=== PATIENT | female | born 1990 | race Caucasian/White ===

== ENCOUNTER 2021-02-07 21:58 | Emergency (ER) | payer OTHER, SELFPAY ==
--- NOTE | ~2021-02-07 | CT_ITS ---
EXAMINATION: CT abdomen pelvis w con DATE: 02/07/2021 23:23 INDICATION: Lower abdominal pain TECHNIQUE: Computed tomography (CT) of the abdomen and pelvis was performed with 100 mL Omnipaque-350 intravenous contrast. Automated exposure control and iterative reconstruction technique were employe d. The dose-length product was 864.09 mGy-cm. COMPARISON: None FINDINGS: Lung bases are clear. Heart size is normal. No pericardial or pleural effusion. Liver, gallbladder, s pleen, pancreas, right kidney and bilateral adrenal glands are normal. 1.4 cm cyst at the upper pole of the left kidney. Bowels including the appendix are normal. Bladder is normal. IUD in expected posi tion within the anteverted uterus. Bilateral ovarian cysts, the larger measuring 2.9 cm at the right ovary. There is small amount of high attenuation hemoperitoneum in the cul-de-sac with subtly higher attenuation likely sentinel clot sign along the anterior margin of the right ovary suggesting this ma y be related to ovarian cyst rupture. No abscess or free intraperitoneal gas. No pathologically enlar ged abdominal or pelvic lymphadenopathy. Bones are unremarkable. IMPRESSION: 1. Bilateral ovarian cysts, the larger on the right measuring 2.9 cm with small amount of hemoperiton eum in the cul-de-sac and right adnexal sentinel clot sign suggesting this represents sequela of righ t ovarian cyst rupture. 2. IUD in expected position within the anteverted uterus. Reviewed, dictated and finalized at location A. IMPRESSION: 1. Bilateral ovarian cysts, the larger on the right measuring 2.9 cm with small amount of hemoperitoneum in the cul-de-sac and right adnexal sentinel clot sig n suggesting this represents sequela of right ovarian cyst rupture. 2. IUD in expected position within the anteverted uterus.
[2021-02-07 22:00] VITALS: BP 137/94; PULSE 115; RESP 15; TEMP 36.5; O2SAT 100
--- NOTE | 2021-02-07 22:07 | PC.NURSE ---
Pt to restroom to provide urine specimen.
[2021-02-07 22:18] VITALS: BP 107/67; PULSE 107; PULSE 111; RESP 16; RESP 20; TEMP 37.2; O2SAT 100; O2SAT 99
--- NOTE | 2021-02-07 22:26 | PC.NURSE ---
Pt presents to ED with complaints of abdominal pain that has been persistent since Saturday. Pt states she usually has difficulty with having bowel movements and assumed that she was constipated and took a stool softener yesterday; states she normally takes stool softeners to induce bowel movements. Pt states she had diarrhea today. Denies nausea, fever, chills, chest pain and sob. Diffuse pain to abdomen that increases with deep inhalation and movement with pain rated 6/10 that is constant and intermittently sharp. Breathing noted to be even and unlabored and vitals are stable. Pt alert and oriented x4 and in no obvious distress at this time. 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 Call button and personal items within reach. Advised to press call button for assistance.
--- NOTE | 2021-02-07 22:26 | ED.ABDPAIN ---
HPI - Abdominal Pain General Chief Complaint: Abdominal Pain Stated Complaint: stomach pain Time Seen by Provider: 02/07/21 22:07 Source: patient Mode of arrival: ambulatory Limitations: no limitations History of Present Illness HPI narrative: Patient is a 30-year-old female complaining of lower abdominal pain, abdominal, 6 out of 10, nonradiating started approximately 3 days ago. Patient denies any chest pain, shortness of breath, nausea, vomiting, diarrhea, fever, chills or urinary symptoms. Denies any vaginal bleeding or discharge. Related Data Home Medications Medication Instructions Recorded Confirmed No Home Medications 01/04/21 01/04/21 Allergies Allergy/AdvReac Type Severity Reaction Status Date / Time Sulfa (Sulfonamide Allergy Unknown Hives Verified 01/04/21 10:40 Antibiotics) doxycycline AdvReac Intermediate Nausea Verified 01/04/21 10:40 Review of Systems Review of Systems: All systems reviewed & are unremarkable except as noted in HPI and below Constitutional: Constitutional: Denies body ache(s), Denies chills, Denies excessive sweating, Denies fatigue, Denies fever(s), Denies headache(s), Denies lethargy, Denies malaise, Denies weakness and Denies weight loss Eyes: Eyes: Denies blurry vision, Denies change in vision and Denies loss of vision ENT: Denies dizziness, Denies ear discharge, Denies headache(s), Denies lip swelling, Denies epistaxis, Denies nasal congestion, Denies neck pain, Denies throat swelling and Denies tongue swelling Cardiovascular: Cardiovascular: Denies chest pain, Denies chest pain at rest, Denies chest pain with activity, Denies diaphoresis, Denies rapid heart rate, Denies edema, Denies irregular heart rhythm, Denies lightheadedness, Denies palpitations, Denies dyspnea and Denies dyspnea on exertion Respiratory: Respiratory: Denies chest congestion, Denies cough, Denies hemoptysis, Denies dyspnea and Denies dyspnea on exertion Gastrointestinal: Gastrointestinal: Denies melena, Denies hematochezia, Denies diarrhea, Denies nausea, Denies vomiting and Denies hematemesis Musculoskeletal: Musculoskeletal: Denies abnormal gait, Denies deformity, Denies joint swelling, Denies limited range of motion, Denies neck pain and Denies numbness Neurologic: Denies Abnormal speech present, Denies abnormal gait, Denies confusion, Denies dizziness, Denies headache(s), Denies focal weakness, Denies loss of vision, Denies numbness, Denies Other visual disturbances, Denies Sensory deficit (Neuro) and Denies weakness Psychiatric: Psychiatric: Denies confusion, Denies depression, Denies auditory hallucinations, Denies homicidal ideation and Denies suicidal ideation Endocrine: Endocrine: Denies cold intolerance, Denies excessive sweating, Denies fatigue, Denies heat intolerance and Denies palpitations Hematologic/Lymphatic: Hematologic/Lymphatic: Denies easy bleeding and Denies easy bruising Allergic/Immunologic: Allergic/Immunologic: Denies lip swelling, Denies throat swelling and Denies tongue swelling PMFSH Past Medical History Medical History Anxiety disorder, unspecified Family history of colon cancer Family History Family History Other Asthma Carcinoma of colon Depression Diabetes mellitus Social History Social History Smoking status: Former smoker Smoking end date: 06/14/20 Gender identity (if verbalized by the patient): Female Exam Const: General: cooperative, healthy appearing, comfortable, no acute distress, well developed, alert and awake; No confusion Orientation/consciousness: oriented to person, oriented to place, oriented to time, patient oriented x3 and No confusion Limitations: no limitations HENMT: Head: normal to inspection, normocephalic and atraumatic Ears: hearing grossly normal bilaterally
--- NOTE | 2021-02-07 22:30 | PC.NURSE ---
Pt refuses pain medication at this time when offered and states she will be ok without it. EDMD aware.
--- NOTE | 2021-02-07 22:37 | PC.NURSE ---
Urine specimen and blood work sent to lab. EDMD presented to bedside. Pt states she was taking gas x assuming she was bloated and also treating with stool softeners. Denies urinary pain and discomfort and vaginal bleeding. Pt alert and oriented x4 and in no obvious distress at this time. Call button provided and advised to press for assistance.
[2021-02-07 22:41] LABS: Basophils Percent Auto 0.4 % (0.2-1.2); Eosinophils Absolute Auto 0.4 K/mm3 (0-0.3); Eosinophils Percent Auto 3.4 % (0-4.4); Hematocrit 36.6 % (37.0-47.0); Hemoglobin 12.4 g/dL (12.0-15.0); Immature Granulocyte Absolute 0.05 K/mm3 (0.00-0.031); Immature Granulocyte Percent A 0.5 % (0-0.5); Lymphocytes Percent Auto 24.6 % (18.3-44.2); Mean Corpuscular HGB Conc 33.9 g/dl (32-36); Mean Corpuscular Hemoglobin 30.8 pg (26-34); Mean Corpuscular Volume 90.8 fl (80-100); Mean Platelet Volume 11.2 fl (7.4-10.4); Monocytes Absolute Auto 0.7 K/mm3 (0.1-0.6); Monocytes Percent Auto 5.9 % (2.6-8.5); Neutrophils Absolute Auto 7.2 K/mm3 (1.3-6.7); Neutrophils Percent Auto 65.2 % (45.5-73.1); Platelet Count Result 196 k/mm3 (150-375); Red Blood Count 4.03 M/mm3 (4.2-5.4); Red Cell Distribution Width 12.5 % (11.5-14.5)
[2021-02-07 22:42] LABS: Add Urine Microscopic? NO; Appearance Urine Clear (Clear); Bilirubin Urine Negative (Negative); Blood Urine Negative (Negative); Color Urine Straw (Yellow); Glucose Urine UA Negative (Negative); Ketones Urine Negative (Negative); Leukocyte Esterase Ur Negative LEU/UL (Negative); Nitrate Urine Negative (Negative); Protein Urine Negative (Negative); Urobilinogen Urine Negative mg/dL (<2.0)
[2021-02-07] MEDS: SODIUM CHLORIDE 0.9% IV 1,000 ML 999 ML IV CONT (22:45)
[2021-02-07 22:50] LABS: Alanine Aminotransferase 15 U/L (4-35); Albumin Level 4.2 g/dL (3.5-5.1); Alkaline Phosphatase 53 U/L (38-126); Anion Gap 6 mmol/L (8-16); Aspartate Amino Transferase 20 U/L (14-36); Bilirubin,Total 0.2 mg/dL (0.2-1.3); Blood Urea Nitrogen 17 mg/dL (7-17); Calcium 8.6 mg/dL (8.4-10.2); Carbon Dioxide 26 mmol/L (22-30); Chloride 106 mmol/L (98-107); Estimated CRCL calculation 94 ml/min; Estimated Glomerular Filt Rate > 60; Glucose 110 mg/dL (65-105); Lipase 49 U/L (23-300); Potassium 3.6 mmol/L (3.4-5.0); Sodium 138 mmol/L (137-145)
--- NOTE | 2021-02-07 23:19 | PC.NURSE ---
Pt to radiology via cart.
--- NOTE | 2021-02-07 23:24 | PC.NURSE ---
Pt returned from radiology. Resting on cart with stable vitals and in no obvious distress. Call button and personal items within reach. Pt advised to press call button for assistance.
[2021-02-07 23:56] VITALS: BP 106/81; PULSE 93; RESP 18; TEMP 37.5; O2SAT 100
--- NOTE | 2021-02-07 23:56 | PC.NURSE ---
EDMD presented to bedside and updated pt on poc. All questions and concerns addressed. Pt advised to follow up with OB tomorrow and voices her understanding.
[2021-02-07 23:58] VITALS: BP 106/81; PULSE 93; RESP 18; TEMP 37.5; O2SAT 100
== END 2021-02-08 | disposition home or self-care (01) ==
PROVIDERS: Emergency Provider Emergency Medicine; PCP Internal Medicine
DX: N83.202 Unspecified ovarian cyst, left side (principal); N83.201 Unspecified ovarian cyst, right side; Z87.891 Personal history of nicotine dependence
CPT/HCPCS: 36415; 74177; 80053; 81003; 81025; 83690; 85025; 96360; 99284; J7030; Q9967

== ENCOUNTER → 2021-02-25 00:14 | Outpatient (CLI) | payer OTHER, SELFPAY ==
[2021-02-25 19:43] LABS: SARS-CoV-2 RNA PCR Negative
== END ==
PROVIDERS: PCP Internal Medicine; Visit Provider Internal Medicine Gastroenterology
DX: Z01.812 Encounter for preprocedural laboratory examination (principal); Z20.822 Contact with and (suspected) exposure to COVID-19
CPT/HCPCS: C9803; U0003; U0005

== ENCOUNTER 2021-02-28 01:29 | Day surgery (SDC) | payer OTHER, SELFPAY ==
[2021-02-14 13:46] VITALS: BMI 28.0
[2021-02-28 09:09] VITALS: BP 114/75; PULSE 88; RESP 16; TEMP 36.1; O2SAT 100; BMI 28.8
--- NOTE | 2021-02-28 09:22 | P.PNAN_ITS ---
Anes - Initial Pre Proc Eval Procedure: Operation Date: 02/28/21 10:30 Proposed Procedures p Colonoscopy - Josiah Weinberg MD Date/Time: 02/28/21 09:22 Surgeon: Josiah Weinberg MD Pre Op Diagnosis: constipation Patient Data Age: 30 Gender: F Height: 1.75 m Weight: 88.5 kg Last Vital Signs Temp 36.1 C L 02/28/21 09:09 Pulse 88 02/28/21 09:09 Resp 16 02/28/21 09:09 BP 114/75 02/28/21 09:09 Pulse Ox 100 02/28/21 09:09 Allergies Allergy/AdvReac Type Severity Reaction Status Date / Time Sulfa (Sulfonamide Allergy Unknown Hives Verified 02/28/21 09:03 Antibiotics) doxycycline AdvReac Intermediate Nausea Verified 02/28/21 09:03 Home Medications Medication Instructions Recorded Confirmed Type No Home Medications 01/04/21 02/28/21 History Patient hx anesthesia problems: none Family hx anesthesia problems: none [facility] Past Medical History Medical History (Updated 02/09/21 @ 00:00 by Blaise Burnham) Anxiety disorder, unspecified Family history of colon cancer Surgical History Surgical History (Updated 02/27/21 @ 09:40 by Ramiro Bledsoe DO) History of tonsillectomy Family History Family History Other Asthma Carcinoma of colon Depression Diabetes mellitus Social History Social History Smoking packs per day: 1 Smoking cigarettes per day: 20.0 Years smoked: 10 Smoking pack-years: 10.00 Smoking status: Former smoker Tobacco type: cigarettes Smoking end date: 06/14/20 Alcohol intake: current Alcohol use details: socially Living arrangements: alone Gender identity (if verbalized by the patient): Female Spiritual care concerns: No Anes - Eval Final PreProcedure Day of Procedure 02/28/21 09:22 Patient weight: overweight Heart: regular rate and rhythm Lungs: clear to auscultation and normal air movement Airway: Mallampati scale class 1 Neurological: alert and oriented Last oral intake: >/= 8 hours ASA classification: II Emergent: no Anesthetic plan: proceed Anesthesia type and monitoring: general GIVS and standard monitoring Informed Consent: The patient's anesthetic plan and its attendant risks and benefits were discussed with the patient/family/POA. Questions were solicited and answers provided to the satisfaction of the patient/family/POA.
[2021-02-28] MEDS: LACTATED RINGERS 1,000 ML 150 ML IV CONT (09:37)
--- NOTE | 2021-02-28 09:42 | WPDGICN ---
Assessment and Plan Assessment and plan (1) Chronic idiopathic constipation: Code(s): K59.04 - Chronic idiopathic constipation Status: Acute Assessment and Plan: Patient appears to have chronic constipation. Long discussion with patient regarding potential therapy. Plan is for patient try Metamucil and Colace on a daily basis. MiraLax should be taken after 4-6 days of no bowel movements. Further recommendations may be given after colonoscopy which will be performed to evaluate and exclude organic disease. (2) Family history of colonic polyps: Code(s): Z83.71 - Family history of colonic polyps Status: Acute Assessment and Plan: Patient's mother has had colon polyps. Grandparent and great grandparents had colon cancer. Colonoscopy will be performed at this time and should be considered 5 year intervals in the future. GI Consult Note Consult date/time: 02/28/21 09:42 HPI: Chari Caballero is a 30 year old female Seen in evaluation at the request of Dr. Jorge Hawkins. patient presents for colonoscopy. Patient has a recent trip to the emergency room was found to have a ruptured ovarian cyst. She has a long history of chronic constipation. Constipation issues date back more than 3 years. She will typically go every 7-10 days. She has tried MiraLax however this causes her to probably have diarrhea. She was given Metamucil supplements however this caused her to be bloated and she no longer takes these medications. Apparently had poor response when only taking Colace. Her family history is significant that her mother had colon polyps grand parents in great grandparents have had colon cancer. Patient herself denies any weight loss or bleeding. She presents today for evaluation because of chronic constipation. Review of Systems Review of Systems: All systems reviewed & are unremarkable except as noted in HPI and below [facility] Past Medical History Medical History (Updated 02/28/21 @ 09:44 by Josiah Weinberg MD) Anxiety disorder, unspecified Family history of colon cancer Surgical History Surgical History (Updated 02/27/21 @ 09:40 by Ramiro Bledsoe DO) History of tonsillectomy Family History Family History Other Asthma Carcinoma of colon Depression Diabetes mellitus Social History Social History Smoking packs per day: 1 Smoking cigarettes per day: 20.0 Years smoked: 10 Smoking pack-years: 10.00 Smoking status: Former smoker Tobacco type: cigarettes Smoking end date: 06/14/20 Alcohol intake: current Alcohol use details: socially Living arrangements: alone Gender identity (if verbalized by the patient): Female Spiritual care concerns: No Meds Home Medications and Allergies Home Medications Medication Instructions Recorded Confirmed Type No Home Medications 01/04/21 02/28/21 History Allergies Allergy/AdvReac Type Severity Reaction Status Date / Time Sulfa (Sulfonamide Allergy Unknown Hives Verified 02/28/21 09:03 Antibiotics) doxycycline AdvReac Intermediate Nausea Verified 02/28/21 09:03 Vital Signs Vital Signs - 24 hr 02/28/21 09:09 Temperature 97 F L Pulse Rate 88 Respiratory Rate 16 Blood Pressure 114/75 Pulse Oximetry 100 Exam Narrative: Exam Narrative: Physical exam reveals patient to be alert. Vital signs stable. HEENT exam unremarkable. She is anicteric. Lungs are clear to auscultation and percussion. Heart is without murmur or extra sounds. Abdominal exam bowel sounds are present soft nontender with no organomegaly. Digital external rectal exam is normal.
[2021-02-28] MEDS: SIMETHICONE ORAL SUSPENSION 20 MG/0.3 ML 30 ML BOTTLE 0.6 ML IRRIGATION (10:09)
[2021-02-28 10:18] VITALS: BP 89/56; PULSE 68; RESP 19; O2SAT 100
[2021-02-28 10:28] VITALS: BP 93/62; PULSE 69; RESP 18; O2SAT 100
[2021-02-28 10:38] VITALS: BP 99/63; PULSE 62; RESP 18; O2SAT 99
== END 2021-02-28 10:47 | disposition home or self-care (01) ==
PROVIDERS: PCP Internal Medicine; Visit Provider Internal Medicine Gastroenterology
PROC: 0DJD8ZZ Inspection of Lower Intestinal Tract, Via Natural or Artificial Opening Endoscopic (ICD-10-PCS; CPT 45378; principal; 2021-02-28 10:30)
DX: Z12.11 Encounter for screening for malignant neoplasm of colon (principal); K59.04 Chronic idiopathic constipation; Z83.71 Family history of colonic polyps; Z80.0 Family history of malignant neoplasm of digestive organs; F41.9 Anxiety disorder, unspecified; Z87.891 Personal history of nicotine dependence
CPT/HCPCS: 45378; C9803; J2704; J7120; U0003; U0005

== ENCOUNTER → 2021-04-10 11:39 | Outpatient (CLI) | payer OTHER, SELFPAY ==
--- NOTE | ~2021-04-10 | XR_ITS ---
EXAMINATION: XR knee RT 2V DATE: 04/10/2021 12:09 INDICATION: Right knee pain. TECHNIQUE: 2 views of right knee were obtained. COMPARISON: Tibia and fibula radiographs 02/14/2011 FINDINGS: Bone alignment is normal. No fracture. There is mild tricompartmental osteoarthritis charac terized by tiny marginal osteophytes. No knee joint effusion. IMPRESSION: 1. Mild right knee osteoarthritis. Reviewed, dictated and finalized at location A.
== END ==
PROVIDERS: PCP Family Medicine; Visit Provider Family Medicine
DX: M17.11 Unilateral primary osteoarthritis, right knee (principal)
CPT/HCPCS: 73560

== ENCOUNTER 2021-05-05 20:15 | Emergency (ER) | payer OTHER, SELFPAY ==
[2021-05-05 20:23] VITALS: BP 135/78; PULSE 94; RESP 20; TEMP 37; O2SAT 100
[2021-05-05 20:36] LABS: Basophils Absolute Auto 0.1 K/mm3 (0.0-0.1); Basophils Percent Auto 0.6 % (0.2-1.2); Eosinophils Absolute Auto 0.2 K/mm3 (0-0.3); Eosinophils Percent Auto 2.3 % (0-4.4); Hematocrit 39.2 % (37.0-47.0); Hemoglobin 13.3 g/dL (12.0-15.0); Immature Granulocyte Absolute 0.04 K/mm3 (0.00-0.031); Immature Granulocyte Percent A 0.4 % (0-0.5); Lymphocytes Absolute Auto 3.31 K/mm3 (0.9-3.2); Lymphocytes Percent Auto 31.8 % (18.3-44.2); Mean Corpuscular HGB Conc 33.9 g/dl (32-36); Mean Corpuscular Hemoglobin 30.9 pg (26-34); Mean Platelet Volume 11.1 fl (7.4-10.4); Monocytes Absolute Auto 0.6 K/mm3 (0.1-0.6); Monocytes Percent Auto 5.3 % (2.6-8.5); Neutrophils Absolute Auto 6.2 K/mm3 (1.3-6.7); Neutrophils Percent Auto 59.6 % (45.5-73.1); Platelet Count Result 203 k/mm3 (150-375); Red Blood Count 4.31 M/mm3 (4.2-5.4); Red Cell Distribution Width 12.3 % (11.5-14.5); White Blood Count 10.4 K/mm3 (4.5-10.0)
[2021-05-05 20:47] LABS: Alanine Aminotransferase 13 U/L (4-35); Albumin Level 4.2 g/dL (3.5-5.1); Alkaline Phosphatase 59 U/L (38-126); Anion Gap 6 mmol/L (8-16); Aspartate Amino Transferase 18 U/L (14-36); Bilirubin,Total 0.4 mg/dL (0.2-1.3); Blood Urea Nitrogen 15 mg/dL (7-17); Calcium 9.3 mg/dL (8.4-10.2); Carbon Dioxide 27 mmol/L (22-30); Chloride 104 mmol/L (98-107); Estimated CRCL calculation 105 ml/min; Estimated Glomerular Filt Rate > 60; Glucose 107 mg/dL (65-110); Lipase 64 U/L (23-300); Potassium 3.9 mmol/L (3.4-5.0); Sodium 137 mmol/L (137-145)
[2021-05-05 21:28] LABS: Add Urine Microscopic? NO; Appearance Urine Clear (Clear); Bilirubin Urine Negative (Negative); Blood Urine Negative (Negative); Color Urine Yellow (Yellow); Glucose Urine UA Negative (Negative); Ketones Urine Negative (Negative); Leukocyte Esterase Ur Negative LEU/UL (Negative); Nitrate Urine Negative (Negative); Protein Urine Negative (Negative); Specific Grav Ur 1.015 (1.001-1.035); Urobilinogen Urine Negative mg/dL (<2.0)
--- NOTE | 2021-05-06 00:49 | PC.NURSE ---
Patient stating she is leaving, I am just going home. I am leaving. Patient left ED.
== END 2021-05-06 00:58 | disposition left against medical advice (07) ==
LOC: ANHED 05-06 00:56
PROVIDERS: Emergency Provider Emergency Medicine; PCP Family Medicine
DX: R10.30 Lower abdominal pain, unspecified (principal)
CPT/HCPCS: 36415; 80053; 81003; 83690; 85025; 99199

== ENCOUNTER → 2021-07-14 07:44 | Outpatient (CLI) | payer OTHER, SELFPAY ==
--- NOTE | ~2021-07-14 | MR_ITS ---
EXAMINATION: MR knee RT wo con DATE: 07/14/2021 08:29 INDICATION: Unilateral primary osteoarthritis of the right knee. TECHNIQUE: Magnetic resonance imaging (MRI) of the right knee was performed without intravenous contr ast. Sequences included coronal PD-weighted FSE, coronal PD-weighted FS FSE, sagittal T2-weighted FS E, sagittal PD-weighted FS FSE and axial PD weighted fat saturated FSE. COMPARISON: None. FINDINGS: Medial compartment: Medial meniscus is normal. Articular cartilage is normal. Lateral compartment: Lateral meniscus is normal. Small region of partial-thickness chondral fissuring involving less than 50% the cartilage thickness at the central aspect of the lateral tibial plateau. Patellofemoral compartment: Chondral fissuring involving greater than 50% the cartilage thickness at the medial and lateral moran lar facet and intervening apical ridge. Partial-thickness chondral ulceration at the medial trochlea. Ligaments and tendons: Anterior and posterior cruciate ligaments are normal. The medial collateral ligament and fibular john ateral ligament complex are normal. The extensor mechanism is normal. The visualized medial and later al hamstring tendons as well as the iliotibial band are normal. Fluid: Physiologic amount of fluid in the joint space. No loose osteochondral bodies identified. Osseous/other: Normal marrow signal. No fracture or pathologic marrow replacing process. IMPRESSION: 1. Mild osteoarthritis with regions of moderate grade chondromalacia in the patellofemoral compartmen t and minimally in the lateral compartment. Reviewed, dictated and finalized at location A. IMPRESSION: 1. Mild osteoarthritis with regions of moderate grade chondromalacia in the pat ellofemoral compartment and minimally in the lateral compartment.
== END ==
PROVIDERS: PCP Family Medicine; Visit Provider Physician Assistant Surgical
DX: M17.11 Unilateral primary osteoarthritis, right knee (principal)
CPT/HCPCS: 73721

== ENCOUNTER → 2022-03-03 07:38 | Outpatient (CLI) | payer OTHER, SELFPAY ==
--- NOTE | ~2022-03-03 | MR_ITS ---
EXAMINATION: MR knee RT wo con DATE: 03/03/2022 08:19 INDICATION: 2 years of worsening lateral right knee pain TECHNIQUE: Magnetic resonance imaging (MRI) of the right knee was performed without intravenous contr ast. Sequences included coronal PD-weighted FSE, coronal PD-weighted FS FSE, sagittal T2-weighted FS E, sagittal PD-weighted FS FSE and axial PD weighted fat saturated FSE. COMPARISON: None. FINDINGS: Medial compartment: Medial meniscus is normal. Mild partial-thickness chondral fissuring along the anterior to central we ightbearing medial femoral condyle. Lateral compartment: Lateral meniscus is normal. 8 x 7 mm region of blisters likely linear delamination at or near the bon e chondral interface at the anteromedial aspect of the weightbearing lateral femoral condyle. Mild pa rtial-thickness chondral fissuring at the posterior weightbearing lateral femoral condyle. Patellofemoral compartment: Shallow chondral ulceration and deeper fissuring at the patellar apical ridge and medial facet. Less severe shallow chondral fissuring at the lateral facet. Tiny focus of either deep fissuring or additi onal delamination near the bone chondral interface at the medial aspect of the medial trochlea. Parti al thickness chondral fissuring and shallow chondral ulceration at the inferior aspect of the medial trochlea. Ligaments and tendons: Anterior and posterior cruciate ligaments are normal. The medial collateral ligament and fibular john ateral ligament complex are normal. The extensor mechanism is normal. The visualized medial and later al hamstring tendons as well as the iliotibial band are normal. Fluid: Physiologic amount of fluid in the joint space. No loose osteochondral bodies identified. Osseous/other: Normal marrow signal. No fracture or abnormal marrow replacing process. IMPRESSION: 1. Mild tricompartmental osteoarthritis with moderate grade chondromalacia most prominent in the howard llofemoral compartment and to lesser degree in the medial lateral components along the weightbearing femoral condyles. Reviewed, dictated and finalized at location A. IMPRESSION: 1. Mild tricompartmental osteoarthritis with moderate grade chondromalacia most prominent in the patellofemoral compartment and to lesser degree in the medial lateral components along the weightbearing femoral condyles.
== END ==
DX: M17.11 Unilateral primary osteoarthritis, right knee (principal)
CPT/HCPCS: 73721

== ENCOUNTER 2022-03-23 09:22 | Emergency (ER) | payer OTHER, SELFPAY ==
[2022-03-23 09:30] VITALS: BP 116/75; PULSE 70; RESP 18; TEMP 36.1; O2SAT 99
--- NOTE | 2022-03-23 09:44 | ED.FEMALEGU ---
HPI - Female Genitourinary General Chief complaint: Urogenital-Female Stated complaint: uti Time Seen by Provider: 03/23/22 09:44 Source: patient Mode of arrival: ambulatory Limitations: no limitations History of Present Illness HPI Narrative: 31-year-old female presents with complaint of urinary frequency, urgency, dysuria for 3 days. Denies fever chills. No abdominal or back pain. Denies nausea vomiting diarrhea. Reports last UTI was approximately 1 year ago. All systems reviewed and negative except as noted above. Related Data Home Medications Medication Instructions Recorded Confirmed levonorgestrel 14 mcg/24 hrs (3 1 device intrauterine ONCE 05/03/21 03/23/22 yrs) 13.5 mg intrauterine device (Angella) L.acidophilus-B.animalis-B.longum 1 cap PO DAILY 01/05/22 03/23/22 15 billion cell capsule ([facility] [employer]) melatonin 10 mg tablet 10 mg PO QHS 01/05/22 03/23/22 Allergies Allergy/AdvReac Type Severity Reaction Status Date / Time Sulfa (Sulfonamide Allergy Unknown Hives Verified 03/23/22 09:51 Antibiotics) doxycycline AdvReac Intermediate Nausea Verified 03/23/22 09:51 Review of Systems Review of Systems: CONSTITUTIONAL: Denies fever, chills, or sweats. EYES: Denies visual changes, redness, or discharge. ENT: Denies rhinorrhea, congestion, sore throat, or otalgia. CARDIOVASCULAR: Denies chest pain, palpitations, or edema. RESPIRATORY: Denies cough or dyspnea. GASTROINTESTINAL: Denies abdominal pain, nausea, vomiting, or diarrhea. GENITOURINARY: Reports dysuria, urgency, frequency. Denies hematuria. SKIN: Denies rash or itching. MUSCULOSKELETAL: Denies back pain, joint pain, or myalgia. NEUROLOGIC: Denies headache, numbness, or weakness. PSYCHIATRIC: Denies anxiety or depression. All other systems reviewed are negative, except as documented in HPI. [facility] Past Medical History Medical History Anxiety disorder, unspecified Family history of colon cancer Surgical History Surgical History History of meniscectomy of right knee History of tonsillectomy Family History Family History Other Asthma Carcinoma of colon Depression Diabetes mellitus Social History Social History Smoking packs per day: 1 Smoking cigarettes per day: 20.0 Years smoked: 10 Smoking pack-years: 10.00 Tobacco type: cigarettes Smoking end date: 06/14/20 Alcohol intake: current Alcohol use details: socially Gender identity (if verbalized by the patient): Female Spiritual care concerns: No Comments At time of signature, agree with nursing past medical, surgical, social and family history. There is no relevant family history pertinent to the presenting complaint. Exam Narrative: GENERAL: This is a well-nourished, well-developed patient, in no apparent distress. HEAD: normocephalic, atraumatic. EYES: PERRL. Sclera clear/white. Vision is grossly intact. EARS: External ears normal NOSE: External nose normal NECK: Neck supple, non-tender without lymphadenopathy, masses or thyromegaly. CARDIOVASCULAR: Regular rate and rhythm without murmurs, gallops, or rubs. RESPIRATORY: Clear to auscultation. Breath sounds equal bilaterally. No wheezes, rales, or rhonchi. SKIN: warm, Dry, intact with no suspicious lesions or rash, good texture and turgor. NEURO: awake, alert, and oriented to person, place and time. There were no obvious focal neurologic abnormalities. EXTREMITIES: Normal range of motion to all extremities. BACK: No CVA tenderness. Course Course Level of Care: Express Care Visit Vital Signs Vital signs: Vital Signs Temperature 36.1 C L 03/23/22 09:30 Pulse Rate 70 03/23/22 09:30 Respiratory Rate 18 03/23/22 09:30 Blood Pressure 116/
== END 2022-03-23 10:00 | disposition home or self-care (01) ==
PROVIDERS: Emergency Provider Nurse Practitioner Family; PCP Family Medicine
DX: N39.0 Urinary tract infection, site not specified (principal); F17.210 Nicotine dependence, cigarettes, uncomplicated
CPT/HCPCS: 81003; 87077; 87086; 87186; 99213; G0463

== ENCOUNTER 2023-08-29 15:52 | Outpatient (CLI) | payer OTHER, SELFPAY ==
--- NOTE | ~2023-08-29 | US_ITS ---
EXAMINATION: US soft tissue chest DATE: 08/29/2023 16:22 INDICATION: Subcutaneous nodule at the midline anterior chest TECHNIQUE: Multiple grayscale and Doppler ultrasound images of the supra xiphoid region of concern we re obtained. COMPARISON: None FINDINGS/IMPRESSION: Normal appearance to the subcutaneous fat at the region of concern. No abnormal masses or fluid colle ctions identified. Reviewed, dictated and finalized at location A. SHER ACCORDION
== END 2023-08-29 15:53 | disposition home or self-care (01) ==
LOC: ANHIMG 15:59
PROVIDERS: PCP Family Medicine; Visit Provider Obstetrics & Gynecology
DX: R22.9 Localized swelling, mass and lump, unspecified (principal)
CPT/HCPCS: 76604

== ENCOUNTER 2023-10-20 08:05 | Emergency (ER) | payer OTHER, SELFPAY ==
[2023-10-20 08:13] VITALS: BP 116/82; PULSE 98; RESP 16; TEMP 36.3; O2SAT 100
--- NOTE | 2023-10-20 08:39 | ED.EAR ---
HPI - Ear Problem General Chief complaint: Ear Stated complaint: EAR DRAINAGE Source: patient Mode of arrival: ambulatory Limitations: no limitations History of Present Illness HPI Narrative: Patient presents for evaluation of right-sided ear pain and muffled hearing. Six days ago she developed symptoms consistent with a common cold, including sinus congestion and postnasal drainage. She then developed a mild productive cough. Yesterday she developed increased pressure in her right ear. She then had abrupt onset muffled hearing. She then developed some pink and yellow drainage from the right ear. No fever, chills, nausea, vomiting. She has taken some DayQuil and Mucinex for her symptoms. She does not smoke. Related Data Home Medications Medication Instructions Recorded Confirmed vortioxetine 5 mg tablet 5 mg PO DAILY 10/20/23 10/20/23 (Trintellix) Allergies Allergy/AdvReac Type Severity Reaction Status Date / Time Sulfa (Sulfonamide Allergy Unknown Hives Verified 10/20/23 08:20 Antibiotics) doxycycline AdvReac Intermediate Nausea Verified 10/20/23 08:20 Review of Systems Review of Systems: CONSTITUTIONAL: Denies fever, chills, or sweats. EYES: Denies visual changes, redness, or discharge. ENT: Reports right sided ear pain with muffled hearing and pink/yellow drainage. Reports postnasal drainage. Denies sore throat CARDIOVASCULAR: Denies chest pain, palpitations, or edema. RESPIRATORY: Reports cough. Denies SOB> GASTROINTESTINAL: Denies abdominal pain, nausea, vomiting, or diarrhea. GENITOURINARY: Denies dysuria or hematuria. SKIN: Denies rash or itching. MUSCULOSKELETAL: Denies back pain, joint pain, or myalgia. NEUROLOGIC: Denies headache, numbness, dizziness, or weakness. PSYCHIATRIC: Denies anxiety or depression. [facility] Past Medical History Medical History Anxiety disorder, unspecified Family history of colon cancer Surgical History Surgical History History of meniscectomy of right knee History of tonsillectomy Family History Family History Other Asthma Carcinoma of colon Depression Diabetes mellitus Social History Social History Years smoked: 10 Smoking status: Former smoker Smoking end date: 06/14/20 Alcohol intake: current Alcohol use details: socially Living arrangements: alone Gender identity (if verbalized by the patient): Female Spiritual care concerns: No Exam Narrative: GENERAL: Well-appearing, well-nourished, and in no acute distress. HEAD: Normocephalic, atraumatic. EYES: PERRLA and EOMI. ENT: Nares clear, no rhinorrhea or epistaxis. Mucous membranes moist. Oropharynx without tonsillar hypertrophy exudate or other lesions. There is a perforation noted to the right ear drum with yellow drainage behind the TM. NECK: Supple. No adenopathy or masses. No carotid bruits or JVD CHEST: Clear to auscultation. No respiratory distress. No wheezes rales or rhonchi HEART: Regular rate and rhythm. No murmur heard. Normal peripheral pulses. ABDOMEN: Soft, nontender, nondistended, normal active bowel sounds. EXTREMITIES: Normal range of motion. No edema. SKIN: Warm, dry, no rash. NEURO: No focal deficits. Alert and oriented x3. PSYCH: Normal mood and affect. Course Course Emergency Course: This is a 32-year-old female who presented for evaluation of right-sided ear pain. She has evidence of tympanic membrane perforation from suspected otitis media. Will treat with Augmentin and ofloxacin. Follow up with primary provider. Go to the ER for worsening symptoms. Patient in agreement with plan of care. Level of Care: Express Care Visit Vital Signs Vital signs: Vital Signs Temperature 36.3 C L 01/0
== END 2023-10-20 08:39 | disposition home or self-care (01) ==
PROVIDERS: Emergency Provider Nurse Practitioner; PCP Physician Assistant
DX: H66.91 Otitis media, unspecified, right ear (principal); H72.91 Unspecified perforation of tympanic membrane, right ear; Z87.891 Personal history of nicotine dependence
CPT/HCPCS: 99213; G0463

== ENCOUNTER 2024-03-10 16:14 | Emergency (ER) | payer OTHER, SELFPAY ==
--- NOTE | ~2024-03-10 | XR_ITS ---
XR ankle RT min 3V 03/10/2024 16:36 INDICATION: Right ankle pain after running PROCEDURE: 4 views right ankle COMPARISON: No prior studies for comparison. FINDINGS: Fracture, dislocation or subluxation is not identified. The soft tissues appear within norm al limits. No foreign bodies are identified. IMPRESSION: 1: NO ACUTE BONE OR JOINT ABNORMALITY IDENTIFIED. Reviewed, dictated and finalized at location B.
--- NOTE | 2024-03-10 16:21 | ED.LOWEXIN ---
HPI - Extremity Injury (Lower) General Chief Complaint: Extremity Injury, Lower Stated Complaint: INJURED R ANKLE Time Seen by Provider: 03/10/24 16:22 Source: patient, RN notes reviewed and old records reviewed Mode of arrival: ambulatory Limitations: no limitations History of Present Illness HPI Narrative: 33-year-old female presents to the [facility] with right lateral ankle pain for 2 weeks. States that she started back in the gym and started running. For stay back she started having discomfort in her ankle. Was fine the next day but recently the discomfort has returned as well as some mild swelling. Has tried using Adrián wraps as well as ibuprofen with no improvement. Has full range of motion. Positive pedal pulses, sensation intact in capillary refill under 2 seconds Onset (ago): week(s) (1) Related Data Home Medications Medication Instructions Recorded Confirmed levonorgestrel 17.5 mcg/24 hr (up 1 device intrauterine ONCE 12/16/23 03/10/24 to 5 yrs) 19.5mg intrauterine device (Kyleena) Allergies Allergy/AdvReac Type Severity Reaction Status Date / Time Sulfa (Sulfonamide Allergy Unknown Hives Verified 03/10/24 16:30 Antibiotics) doxycycline AdvReac Intermediate Nausea Verified 03/10/24 16:30 Review of Systems Review of Systems: All systems reviewed & are unremarkable except as noted in HPI and below Constitutional: Constitutional: Reports no additional constitutional complaints Eyes: Eyes: Reports no additional eye complaints ENT: Reports system reviewed and no additional complaints, except as documented Cardiovascular: Cardiovascular: Reports no additional cardiovascular complaints, Denies chest pain and Denies dyspnea Respiratory: Respiratory: Reports no additional respiratory complaints, Denies chest congestion, Denies cough and Denies dyspnea Gastrointestinal: Gastrointestinal: Reports no additional gastrointestinal complaints, Denies abdominal pain, Denies nausea and Denies vomiting Musculoskeletal: Musculoskeletal: Reports as per HPI Integumentary/Breasts: Skin/Breast: Reports system reviewed and no additional complaints, except as docu Neurologic: Reports system reviewed and no additional complaints, except as documented Psychiatric: Psychiatric: Reports no additional psychiatric complaints Allergic/Immunologic: Allergic/Immunologic: Reports no additional allergic/immunologic complaints PMFSH Past Medical History Medical History Anxiety disorder, unspecified Family history of colon cancer Surgical History Surgical History History of meniscectomy of right knee History of tonsillectomy Family History Family History Other Asthma Carcinoma of colon Depression Diabetes mellitus Social History Social History Social History: Caffeine-coffee/soda Years smoked: 10 Smoking status: Former smoker Smoking end date: 06/14/20 Alcohol intake: current Drinks per week: 3 Alcohol use details: socially Substance use: never Substance use type: does not use Lack of Transportation: No Lack of Food: Never True Current Housing: I Have Housing Concerned About Future Housing: No Difficulty Paying Gas/Electric Bills: No Difficulty Paying for Meds: No Currently Unemployed: No Education: High School Diploma/GED Difficulty w/ Childcare or Family Care: No Living arrangements: alone Gender identity (if verbalized by the patient): Female Spiritual care concerns: No Comments At the time of my signature, I reviewed and agree with the nursing past medical, surgical, social, and family history. There is no relevant family history pertinent to the patient complaint. Exam Const: General: cooperative, healthy appearing, comfortable, no
[2024-03-10 16:25] VITALS: BP 132/93; PULSE 85; RESP 20; TEMP 36.4; O2SAT 100
== END 2024-03-10 17:03 | disposition home or self-care (01) ==
PROVIDERS: Emergency Provider Nurse Practitioner; PCP Physician Assistant
DX: S93.401A Sprain of unspecified ligament of right ankle, initial encounter (principal); X50.3XXA Overexertion from repetitive movements, initial encounter; Y93.02 Activity, running
CPT/HCPCS: 73610; 99213; G0463

== ENCOUNTER 2025-01-01 09:18 | Outpatient (CLI) | payer OTHER, SELFPAY ==
--- OUTSIDE RECORDS SUMMARY | 2025-01-01 10:16 | XMS_ITS | Clinical Summary ---
Author Organization [facility] Address [address] [place] [address] Care Team Providers Care Dock Builder Name Role Phone Louie Dowling MD Primary Care Provider Allergies Active Allergy Reactions Criticality Noted Date Comments Doxycycline Nausea & Vomiting Low 02/08/2022 Sulfa (Sulfonamide Antibiotics) Rash Medium 01/13 Medications naproxen (NAPROSYN) 500 mg tablet Take 1 tablet (500 mg total) by mouth 2 (two) times a day with meals for 10 days 20 tablet 06/22/2022 Active HYDROcodone-kishore taminophen (NORCO) 5-325 mg per tabletIndicatio ns:Pain TAKE 1-2 TABLETS EVERY 6 HOURS NEEDED FOR PAIN 12 tablet 06/22/2022 Active Active Problems Problem Noted Date Diagnosed Date 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 2-3 times a week 06/01/2022 Q2: How many drinks containi ng alcohol do you have on a typical day when you are drinking? 3 or 4 06/01/2022 Q3: How often do you have si x or more drinks on one occasion? Less than monthly 06/01/2022 Comments No Sex and Gender Information Value Date Recorded Sex Assigned at Not on file Legal Sex Female 11:31 AM CDT Gender Identity Not on file Sexual Orientation Not on file Obstetrics History Last Filed Vital Signs Vital Sign Reading Time Taken Comments Blood Pressure 110/71 06/22/2022 9:05 AM CDT Pulse 69 06/22/2022 9:10 AM CDT Temperature 36.5 C (97.7 F) 06/22/2022 9:10 AM CDT Respiratory Rate 18 06/22/2022 9:10 AM CDT Oxygen Saturation 96% 06/22/2022 9:10 AM CDT Inhaled Oxygen Concentration - - Weight 98.5 kg (217 lb 1.6 oz) 06/22/2022 5:59 A M CDT Height 175.3 cm (5' 9 ) 06/22/2022 5:59 AM CDT Body Mass Index 32.06 06/22/2022 5:59 AM CDT Plan of Treatment Health Maintenance Due Date Last Done Comments Cervical Cancer Screening 1990 Depression Screening 1990 Hepatitis C Screening 1990 DTaP/Tdap/Td Vaccine (1 - Tdap) 2001 Varicella Vaccines (1 of 2 - 13+ 2-dose series) 2003 Hepatitis B Screening 2008 Regular Well Visit/Exam 18-64 2008 Influenza Vaccine (#1) 2024 HPV Vaccines Aged Out No longer eligi ble based on patient's age to complete this topic Pneumococcal vaccine <65 Aged Out No longer eligible based on patient's age to complete this topic Insurance [facility] OPEN ACCESS [employer] OPEN ACCESS LOCAL PLUS Advance Directives For more information, please contact: [phone] * Full Code (Latest Code Status on File) Date Activated Date Inactivated Comments 06/22/2022 8:22 AM 06/22/2022 1:22 PM Care Teams Dock Builder Relationship Specialty Start Date End Date Louie Dowling MD [address] [address] PCP - General Family Medicine 02/08/22
--- OUTSIDE RECORDS SUMMARY | 2025-01-01 10:16 | XMS_ITS | Referral Summary ---
Author Organization [facility] Address [address] [place] [address] Care Team Providers Care Drying Unit Felting Machine Operator Name Role Phone Louie Dowling MD Primary [...] in lateral portion of right knee 02/08/2022 Social History Tobacco Use Types Packs/Day Years [...] on file Sexual Orientation Not on file Last Filed Vital Signs Vital Sign Reading [...] 06/22/2022 5:59 AM CDT Plan of Treatment Not on file Insurance [employer] OPEN ACCESS [place] OPEN ACCESS LOCAL PLUS Advance Directives For more information, please contact: [phone] * Full Code (Latest Code Status on File) Date Activated Date Inactivated Comments 06/22/2022 8:22 AM 06/22/2022 1:22 PM Care Teams Drying Unit Felting Machine Operator Relationship Specialty Start Date End Date Louie Dowling MD [address] [address] PCP - General Family Medicine 02/08/22
--- OUTSIDE RECORDS SUMMARY | 2025-01-01 10:16 | XMS_ITS | Data Portability ---
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 Patient will come back in a year unless there are new symptoms. Not available 08/13/2023 15:41:45 12/26/2024 12/26/2024 Annual gynecological exam performed. Patient will come back in a year unless there are new symptoms. [email or web address] Not available 12/26/2024 10:55:35 Plan of Treatment Reminders Order Date Submit Date Provider Last Modified By Organization Details Last Modified Time Details Appointments MED CHECK 2024 08:30A Pranav LAUGHLIN MD Not available Not available Not available Lab CBC w/ auto diff 2022 023 [facility] (Lab), [address], [place], [address], 08/14/2023 03:39:43 CMP, serum or plasma 2022 023 [facility] (Lab), [address], [place], [address], 08/14/2023 03:39:44 lipid panel, blood 2022 023 [facility] (Lab), [address], [place], [address], 08/14/2023 03:39:44 TSH, serum or plasma 2022 023 [facility] (Lab), [address], [place], [address], 08/14/2023 03:39:45 vitamin D, 25-hydrox y, total, serum 2022 023 [facility] (Lab), [address], [place], [address], 08/14/2023 03:39:45 Referral None recorded. Procedures None recorded. Surgeries None recorded. Imaging None recorded. Medication Orders Bactrim DS 800 mg-160 mg tablet 2024 025 [id number] [address] [place], [address], 12/26/2024 11:14:16 metformin 500 mg tablet 2024 025 [id number], [address] [place], [address], 12/26/2024 11:32:20 Zepbound 2.5 mg/0.5 mL subcutane ous solution 2024 025 [id number] [address] [place], [address], 12/26/2024 11:32:20 Patient TargetsNo targets recorded. Patient InstructionsNo instructions recorded. Reason for Referral None Reported. Results Created Date Observation Date Name Description Value Unit Range Abnormal Flag Note LastModifiedBy Organization Detail LastModifiedTime 04/02/20 22 04/02/2022 CT/GC AND TRICH OMONA S VAGIN MARCO (RRNA ), URINE chlamydia trachomatis, PCR Negati ve negati ve Not Available [facility] (Lab) [address], [place], [address], 04/03/2022 13:32:04 04/02/20 22 04/02/2022 CT/GC AND TRICH OMONA S VAGIN MARCO (RRNA ), URINE neisseria gonorrhoeae, PCR Negati ve negati ve Not Available [facility] (Lab) [address], [place], [address], 04/03/2022 13:32:04 04/02/20 22 04/02/2022 CT/GC AND TRICH OMONA S VAGIN MARCO (RRNA ), URINE trichomonas vaginalis ribosomal RNA (rrna) Negati ve negati ve Not Available [facility] (Lab) [address], [place], [address], 04/03/2022 13:32:04 08/13/2008/13/2023 CBC W/DIF F WBC 8.1 10'3/ uL 3.6-10 .2 Not Available [facility] (Lab) [address], [place], [address], 08/14/2023 03:39:41 08/13/20 23 08/13/2023 CBC W/DIF F RBC 4.63 10'6/ uL (based on docume nted legal sex) 4.10-5 .30 Not Available [facility] (Lab) [address], [place], [address], 08/14/2023 03:39:41 08/13/20 23 08/13/2023 CBC W/DIF F HGB 13.6 g/dL (based on docume nted legal sex) 11.9-1 5.8 Not Available [facility] (Lab) [address], [place], [address], 08/14/2023 03:39:41 08/13/20 23 08/13/2023 CBC W/DIF F HCT 40.9 % (based on docume nted legal sex) 37.4-4 8.3 Not Available [facility] (Lab) [address], [place], [address], 08/14/2023 03:39:41 08/13/2008/13/2023 CBC W/DIF F MCV 88.3 fL 82.0-9 9.0 Not Available [facility] (Lab) [address], [place], [address], 08/14/2023 03:39:41 08/13/20 23 08/13/2023 CBC W/DIF F MCH 29.4 pg 27.0-3 3.0 Not Available [facility] (Lab) [address], [place], [address], 08/14/2023 03:39:41 08/13/20 23 08/13/2023 CBC W/DIF F MCHC 33.3 g/dL 32.0-3 6.0 Not Available [facility] (Lab) [address], [place], [address], 08/14/2023 03:39:41 08/13/20 23 08/13/2023 CBC W/DIF F RDW 12.7 % 11.0-1 5.0 Not Available [facility] (Lab) [address], [place], [address], 08/14/2023 03:39:41 08/13/20 23 08/13/2023 CBC W/DIF F plt 260 10'3/ uL 150-45 0 Not Available [facility] (Lab) [address], [place], [address], 08/14/2023 03:39:41 08/13/20 23 08/13/2023 CBC W/DIF F MPV 11.5 fL 9.8-12 .7 Not Available [facility] (Lab) [address], [place], [address], 08/14/2023 03:39:41 08/13/20 23 08/13/2023 CBC W/DIF F NRBC's 0.0 % 0 Not Available [facility] (Lab) [address], [place], [address], 08/14/2023 03:39:41 08/13/20 23 08/13/2023 CBC W/DIF F absolute NRBCs 0.0 10'3/ uL 0 Not Available [facility] (Lab) [address], [place], [address], 08/14/2023 03:39:41 08/13/20 23 08/13/2023 CBC W/DIF F neutrophils 59.1 % 37.0-7 2.0 Not Available [facility] (Lab) [address], [place], [address], 08/14/2023 03:39:41 08/13/20 23 08/13/2023 CBC W/DIF F lymphocytes 30.4 % 16.0-4 8.0 Not Available [facility] (Lab) [address], [place], [address], 08/14/2023 03:39:41 08/13/20 23 08/13/2023 CBC W/DIF F monocytes 5.9 % 4.0-14 .0 Not Available [facility] (Lab) [address], [place], [address], 08/14/2023 03:39:41 08/13/20 23 08/13/2023 CBC W/DIF F eosinophils 3.2 % 0.0-9. 0 Not Available [facility] (Lab) [address], [place], [address], 08/14/2023 03:39:41 08/13/20 23 08/13/2023 CBC W/DIF F basophils 1.0 % 0.0-2. 0 Not Available [facility] (Lab) [address], [place], [address], 08/14/2023 03:39:41 08/13/20 23 08/13/2023 CBC W/DIF F immature granulocytes 0.4 % no define d refere nce range Not Available [facility] (Lab) [address], [place], [address], 08/14/2023 03:39:41 08/13/20 23 08/13/2023 CBC W/DIF F absolute neutrophils 4.8 10'3/ uL 1.1-6. 0 Not Available [facility] (Lab) [address], [place], [address], 08/14/2023 03:39:41 08/13/20 23 08/13/2023 CBC W/DIF F absolute lymphocytes 2.5 10'3/ uL 0.7-3. 4 Not Available [facility] (Lab) [address], [place], [address], 08/14/2023 03:39:41 08/13/20 23 08/13/2023 CBC W/DIF F absolute monocytes 0.5 10'3/ uL 0.3-1. 0 Not Available [facility] (Lab) [address], [place], [address], 08/14/2023 03:39:41 08/13/20 23 08/13/2023 CBC W/DIF F absolute eosinophils 0.3 10'3/ uL 0.0-0. 6 Not Available [facility] (Lab) [address], [place], [address], 08/14/2023 03:39:41 08/13/20 23 08/13/2023 CBC W/DIF F absolute basophils 0.1 10'3/ uL 0.0-0. 1 Not Available [facility] (Lab) [address], [place], [address], 08/14/2023 03:39:41 08/13/20 23 08/13/2023 CBC W/DIF F absolute immature granulocytes 0.0 10'3/ uL 0.00-0 .10 2022 1:10 AM: P indic ates parti al resul ts on a panel have been relea sed. Addit ional resul ts will follo w. 2022 1:10 AM: This resul t has been final verif ied. No addit ional or carlson ed resul ts are expec felicia. Not Available [facility] (Lab) [address], [place], [address], 08/14/2023 03:39:41 08/13/2008/13/2023 LIPID PANEL ,AMA (LDL- CALC) total cholesterol 167 mg/dL 0-199 Not Available [facility] (Lab) [address], [place], [address], 08/14/2023 03:39:44 08/13/2008/13/2023 LIPID PANEL ,AMA (LDL- CALC) triglyceride s 117 mg/dL 0.00-1 50.00 NCEP Refer ence Value s for Trigl yceri radha: Mer l: <150 mg/dL Borde rline High: 150 - 199 mg/dL High: 200 - 499 mg/dL Very High: >/= 500 mg/dL Not Available [facility] (Lab) [address] [place], [address], 08/14/2023 03:39:44 08/13/20 23 08/13/2023 LIPID PANEL ,AMA (LDL- CALC) HDL cholesterol 44 mg/dL >40 Not Available [facility] (Lab) [address] [place], [address], 08/14/2023 03:39:44 08/13/2008/13/2023 LIPID PANEL ,AMA (LDL- CALC) LDL cholesterol 102 mg/dL 0-99 high Cutof f value s recom carlyn d by the Gary nal Ginna stero l Educa tion Progr am: FITO ABLE: Ginna stero l <200 mg/dL LDL <100 mg/dL BORDE RLINE : Ginna stero l 200-2 39 mg/dL LDL 101-1 59 mg/dL HIGHE R RISK: Ginna stero l >240 mg/dL LDL >160 mg/dL , HDL <40 mg/dL Not Available [facility] (Lab) [address] [place], [address], 08/14/2023 03:39:44 08/13/2008/13/2023 LIPID PANEL ,AMA (LDL- CALC) non-HDL cholesterol 123 mg/dL no refere nce range A reaso nable goal for non-H DL ginna stero l is one that is 30 mg/dL highe r than the LDL ginna stero l goal. Not Available [facility] (Lab) [address], [place], [address], 08/14/2023 03:39:44 08/13/2008/13/2023 LIPID PANEL ,AMA (LDL- CALC) chol/HDL ratio 3.8 . 0.0-5. 0 On February 05, 2023, [facility] labor atori nilda carlson ed the equat ion for calcu latin g estim ated low-d ensit y lipop rotei n-cho leste rol (LDL- C) from the Fried giancarlo equat ion to the Kim n/Hop kins equat ion. This new equat ion is only valid for lipid panel s with trigl yceri radha < 400 mg/dL . Bayi es have demon strat ed that this new equat ion will impro ve the accur acy of LDL-C , espec ially in scena rodas when LDL-C suly ntrat ions are relat ively low (< 100 mg/dL ), trigl yceri radha are eleva felicia, or patie nt is non-f astin g. Refer ences : - Kim thomas, Richy Crook, Aleksandar Carranza , [facility] tri fuchs, Himanshu Kelly, Himanshu childs, [facility] , and Jay Vaz . 2013. Comp ariso n of a Novel Metho d vs the Fried giancarlo Equat ion for Estim ating Low-D ensit y Lipop rotei n Ginna stero l Level s from the Stand ashley Lipid Profi le. MALA: The Journ al of the Ameri can Medic al Assoc iatio n 310 (19): 2060- . - Rex clemens V, Shawna J, Francoise Henry, Adele Rock, Luke carlos R, Maurice Carlos, Ilda schilling RS, Milind SR, Kim n SS. Fast ing Versu s Nonfa sting and Low-D ensit y Lipop rotei n Ginna stero l Accur acy. Circu latio n. 2017Oct 15;137 (1):1 0-19. Not Available [facility] (Lab) [address], [place], [address], 08/14/2023 03:39:44 08/13/20 23 08/13/2023 CMP(C OMPRE HENSI VE METAB OLIC PANEL ) sodium 141 mmol/ L 133-14 6 Not Available [facility] (Lab) [address], [place], [address], 08/14/2023 03:39:44 08/13/20 23 08/13/2023 CMP(C OMPRE HENSI VE METAB OLIC PANEL ) potassium 4.5 mmol/ L 3.5-5. 1 Not Available [facility] (Lab) [address], [place], [address], 08/14/2023 03:39:44 08/13/20 23 08/13/2023 CMP(C OMPRE HENSI VE METAB OLIC PANEL ) chloride 106 mmol/ L 98-107 Not Available [facility] (Lab) [address], [place], [address], 08/14/2023 03:39:44 08/13/20 23 08/13/2023 CMP(C OMPRE HENSI VE METAB OLIC PANEL ) carbon dioxide 26 mmol/ L 21-31 Not Available [facility] (Lab) [address], [place], [address], 08/14/2023 03:39:44 08/13/20 23 08/13/2023 CMP(C OMPRE HENSI VE METAB OLIC PANEL ) anion gap 9 mmol/ L 4-13 Not Available [facility] (Lab) [address], [place], [address], 08/14/2023 03:39:44 08/13/20 23 08/13/2023 CMP(C OMPRE HENSI VE METAB OLIC PANEL ) blood urea nitrogen 12 mg/dL 7-25 Not Available [facility] (Lab) [address], [place], [address], 08/14/2023 03:39:44 08/13/20 23 08/13/2023 CMP(C OMPRE HENSI VE METAB OLIC PANEL ) creatinine 1.06 mg/dL 0.60-1 .30 Not Available [facility] (Lab) [address], [place], [address], 08/14/2023 03:39:44 08/13/20 23 08/13/2023 CMP(C OMPRE HENSI VE METAB OLIC PANEL ) egfrcr (CKD-epi 2020) 72 mL/mi n/1.7 3_m2 >=60 Not Available [facility] (Lab) [address], [place], [address], 08/14/2023 03:39:44 08/13/20 23 08/13/2023 CMP(C OMPRE HENSI VE METAB OLIC PANEL ) calcium 9.4 mg/dL 8.3-10 .5 Not Available [facility] (Lab) [address], [place], [address], 08/14/2023 03:39:44 08/13/20 23 08/13/2023 CMP(C OMPRE HENSI VE METAB OLIC PANEL ) glucose 93 mg/dL 70-100 Not Available [facility] (Lab) [address], [place], [address], 08/14/2023 03:39:44 08/13/20 23 08/13/2023 CMP(C OMPRE HENSI VE METAB OLIC PANEL ) protein, total 6.6 g/dL 6.4-8. 3 Not Available [facility] (Lab) [address], [place], [address], 08/14/2023 03:39:44 08/13/20 23 08/13/2023 CMP(C OMPRE HENSI VE METAB OLIC PANEL ) albumin 4.4 g/dL 3.5-5. 0 Not Available [facility] (Lab) [address], [place], [address], 08/14/2023 03:39:44 08/13/20 23 08/13/2023 CMP(C OMPRE HENSI VE METAB OLIC PANEL ) ALT 24 units /L 9-43 Not Available [facility] (Lab) [address], [place], [address], 08/14/2023 03:39:44 08/13/20 23 08/13/2023 CMP(C OMPRE HENSI VE METAB OLIC PANEL ) alkaline phosphatase 61 units /L 34-104 Not Available [facility] (Lab) [address], [place], [address], 08/14/2023 03:39:44 08/13/20 23 08/13/2023 CMP(C OMPRE HENSI VE METAB OLIC PANEL ) AST 13 units /L 13-39 Not Available [facility] (Lab) [address], [place], [address], 08/14/2023 03:39:44 08/13/20 23 08/13/2023 CMP(C OMPRE HENSI VE METAB OLIC PANEL ) bilirubin, total 0.3 mg/dL 0.2-1. 2 Not Available [facility] (Lab) [address], [place], [address], 08/14/2023 03:39:44 08/13/20 23 08/13/2023 TSH, REFLE X FREE T4 TSH 1.82 uIU/m L 0.30-5 .33 Not Available [facility] (Lab) [address], [place], [address], 08/14/2023 03:39:45 08/13/20 23 08/13/2023 VITAM IN D, 25-OH (TOTA L D2/D3 ) vitamin D, 25-hydroxy, total 34.3 NG/mL 30.0-1 00.0 Sugge stive of Defic iency : <20 ng/mL Sugge stive of Insuf ficie ncy: 20-29 ng/mL Sugge stive of Suffi cienc y: 30-10 0 ng/mL Sugge stive of Toxic ity: >150 ng/mL Not Available [facility] (Lab) [address], [place], [address], 08/14/2023 03:39:45 08/13/20 23 08/13/2023 IMAGE GUIDE D PAP AND HPV REGAR DLESS image guided Pap, HPV regardless of Pap result SEE RESULT S BELOW CASE REPOR T: Cytol ogy Gynec ologi parth Repor t Case: [id number] Autho stephanie g Provi alyson: Lana Laughlin MD Colle cted: 08/13 1625 Order ing Locat ion: [place] [facility] Recei marty: 08/14 0313 First Scree n: John Paul Travis, CT Speci men: Scree katie Pap - Image d, Cervi x STATE MENT OF ADEQU ACY: Satis facto ry for evalu ation Trans forma tion zone compo nent prese nt FINAL DIAGN OSIS: Negat joe for Intra epith elial Lesio n or Mayda hinson (NIL) . Tala vaca razia d by John Paul Travis, CT on 2022 at 4:34 PM ----- ----- ----- ----- ----- ----- ----- ----- ----- ----- ----- ----- ----- ----- ----- ----- ----- ---- HPV RESUL TS: HPV mRNA E6/E7 : No HPV mRNA Detec felicia NOTE: This high risk HPV mRNA assay detec ts fourt een high- risk HPV types (16, 18, 31, 33, 35, 39, 45, 51, 52, 56, 58, 59, 66, 68) witho ut diffe renti ation . COMME NT: This speci men was revie wed by a Cytot echno logis t and/o r Patho logis t (as indic ated in this repor t) after evalu ation using the Thinp rep Imagi ng Syste m. CLINI PARTH INFOR MATIO N: Menst rual Statu s: LMP (if appli cable ): Clini parth Histo ry/Pr eviou s Pap: Type of Neopl kike (if appli cable ): Signi fican t Clini parth Findi ngs: Other Histo ry: Hormo barbara (if appli cable ): PAP EDUCA AYAKA L NOTE: The Pap Test is a scree katie test with an inher ent false negat joe rate. Liqui d-bas ed sampl ing may decre ase, but will not elimi sebastian, false negat joe resul ts. A negat joe resul t does not precl ude the prese nce and/o r devel opmen t of disea se, since the prese nce of abnor mal cells in the sampl e depen ds on the locat ion of the lesio n and sampl ing techn ique. Ingrid nued regul ar scree katie is the best metho d of cance r preve ntion . If repor felicia cytol ogic findi ng do not corre late with physi parth and/o r histo rical findi ngs, furth er inves tigat ion is recom carlyn d, as clini brock willis nted. Not Available [facility] (Lab) [address], [place], [address], 08/16/2023 17:38:05 08/30/20 23 08/29/2023 US, chest wall No observ ation record ed. [facility] [address], [place], [address], 09/16/2023 21:15:34 Result Notes None recorded. Problems Name Problem SNOMED Code Status Onset Date Resolution Date Notes Provider Name and Address Organization Details Recorded Time SNOMED CT Concept Completed 201802/10/2021 Encntr for epic cadence specialists exam (general) (routine) w/o abn findings; Recorded Elsewhere : No Locati on: [facility] So urce: EHR Chron ic: N Practic e ID: [id number] Bill able Time: 10:30:00 AM Mitzy wood [facility] 09:29:03 Hidraden itis suppurat obed [id number] Completed 201802/10/2021 Hidradeni tis suppurati va;Record ed Elsewhere : No Locati on: [facility] So urce: EHR Chron ic: N Practic e ID: [id number] Bill able Time: 10:30:00 AM Mitzy Weaver [facility] 09:29:51 Insertio n of intraute rine contrace ptive device Completed 201802/10/2021 INSERTION OF IUD;Recor ded Elsewhere : No Locati on: [facility] So urce: EHR Chron ic: N Practic e ID: [id number] Bill able Time: 08:30:00 AM Mitzy wood [facility] 09:28:56 Clinical finding Completed 201802/10/2021 Presence of (intraute rine) contracep tive device;Re corded Elsewhere : No Locati on: [facility] So urce: EHR Chron ic: N Practic e ID: [id number] Bill able Time: 08:30:00 AM Mitzy wood [facility] 1 09:28:49 Pregnanc y test negative [id number] Completed 201802/10/2021 Encounter for test, result negative; Recorded Elsewhere : No Locati on: [facility] So urce: EHR Chron ic: N Practic e ID: [id number] Bill able Time: 08:30:00 AM Mitzy wood [facility] 09:28:58 Contrace ptive sheath status [id number] Completed 201802/10/2021 Encounter for routine checking of IUD;Recor ded Elsewhere : No Locati on: [facility] So urce: EHR Chron ic: N Practic e ID: [id number] Bill able Time: 09:45:00 AM Mitzy wood [facility] 09:28:51 Removal of intraute rine device Completed 201802/10/2021 Encounter for removal of intrauter ine contracep tive device;Pr actice ID: [id number] Mitzy wood [facility] 09:29:00 Problem Notes None recorded. Procedures Surgical History Date Name Laterality Status Provider Name and Address Organization Details Recorded Time 06/14/20 22 procedure on knee completed [facility] 08/13/2023 16:17:40 04/02/20 22 IUD Removal completed Mikey Laughlin MD [address], [place], [address], [facility] 04/03/2022 17:56:04 04/02/20 22 IUD Insertion completed Mikey Laughlin MD [address], [place], [address], [facility] 04/02/2022 14:15:46 02/27/20 22 Date of Last Pap Smear completed [facility] 08/13/2023 16:02:45 10/14/19 07 Knee arthroscopy/jones rgery completed [facility] 03/11/2020 09:36:02 10/14/19 04 tonsilectomy/a denoids completed [facility] 03/11/2020 09:35:46 10/14/19 03 extraction of wisdom tooth completed [facility] 03/11/2020 09:35:37 tonsilectomy/a denoids completed [facility] 08/13/2023 15:43:32 Imaging Results Imaging Date Name Status LastModified by Organiz ation Details LastModified Time 08/29/2023 US, chest wall completed [facility] [address], [place], [address], 09/16/2023 21:15:34 Procedure Notes None recorded. Medical Equipment None Reported. Allergies Allergen ID Allergen Name Allergen Category Reaction Reaction Severity Criticality Documentation Date Start Date Code Code System Note Provider Name and Address Organization Details Recorded Time 64484 Substance with sulfonami de structure and antibacte rial mechanism of action (substanc e) medicatio n Not available Not available Not available 09/30/2020 79884 8000 SNOMED Comme nt: Locat ion: [facility]; Not Available [facility] 0 14:20:41 92454 doxycycli ne Not available nausea Not available Not available 02/10/2021 3640 RxNorm Mitzy Weaver [facility] 1 09:45:33 Medications Name Sig Start Date Stop Date Status Note LastModified by Organization Details LastModified Time buspirone 5 mg tablet 5 MG ORALLY THREE TIMES A DAY NEEDED FOR ANXIETY 12/26 completed Not Available Not Available Not Available metformin 500 mg tablet Take 1 tablet twice a day by oral route. 2024 active Not Available Not Available Not Avai lable prednison e 10 mg tablet 12/26 completed Not Available Not Available Not Available doxycycli ne hyclate 100 mg capsule take 1 capsule by oral route every day 05/15 completed Prescrib ed Elsewher e: No Locat ion: [facility] odify By: [email or web address] Anibal r DateTime : 02/21/20 10:30:00 AM Not Available Not Available Not Available minocycli ne 100 mg capsule take 1 capsule by oral route every 24 hours 04/21 completed Prescrib ed Elsewher e: No Locat ion: [facility] odify By: femi linton DateTime : 04/21/20 02:24:49 PM Not Available Not Available Not Available meloxicam 15 mg tablet TAKE 1/2 TAB BY MOUTH IN THE AM AND 1/2 TAB AT NIGHT. TAKE WITH FOOD. STOP IF STOMACH UPSET. 02/26 completed Not Available Not Available Not Available Bactrim DS 800 mg-160 mg tablet Take 1 tablet every 12 hours by oral route. 2024 active Not Available Not Available Not Avai lable nitrofura ntoin monohydra te/macroc rystals 100 mg capsule TAKE 1 CAPSULE BY MOUTH EVERY 12 HOURS FOR 7 DAYS WITH FOOD 08/13 completed Not Available Not Available Not Available Euflexxa 10 mg/mL (mw 2.4-3.6 million) intra-art icular syringe 02/26 completed Not Available Not Available Not Available melatonin 5 mg capsule 02/10 completed Prescrib ed Kurt e: Yes Loca tion: [facility] M odify By: cresencio camara DateTime : 07/10/20 09:45:00 AM Not Available Not Available Not Available Angella 14 mcg/24 hr (up to 3 years) 13.5 mg intrauter ine device Take by intraute rine route. 04/02 completed Not Available Not Available Not Available Trintelli x 5 mg tablet TAKE 1 TABLET BY MOUTH EVERY DAY 12/26 completed Not Available Not Available Not Available Kyleena 17.5 mcg/24 hr (up to 5 years) 19.5 mg intrauter ine device Take by intraute rine route. active Not Available Not Available No t Available Florajen Digestion 08/13 completed Not Available Not Available Not Available Zepbound 2.5 mg/0.5 mL subcutane ous pen injector active Not Available Not Available Not Available Zepbound 2.5 mg/0.5 mL subcutane ous solution give 2.5mg injectio n weekly active Not Available Not Available No t Available Vitals Date Recorded Body height Body mass index (BMI) Body weight Systolic blood pressure Diastolic blood pressure Provider Name and Address Organization Details Last Updated DateTime 04/02/2022 175.26 cm 31.5 kg/m2 88869.17 g 111 mm[Hg] 69 mm[Hg] Mitzy Weaver [facility] 06/20/202 2 09:39:02 Date Recorded Body height Body mass index (BMI) Body weight Systolic blood pressure Diastolic blood pressure Provider Name and Address Organization Details Last Updated DateTime 04/30/2022 175.26 cm 31.7 kg/m2 76928.36 g 118 mm[Hg] 78 mm[Hg] Mitzy Weaver [facility] 2 10:28:09 Date Recorded Body height Body mass index (BMI) Body weight Systolic blood pressure Diastolic blood pressure Provider Name and Address Organization Details Last Updated DateTime 08/13/2023 175.26 cm 36.9 kg/m2 158851.0 9 g 128 mm[Hg] 84 mm[Hg] Mitzy Weaver [facility] 3 16:02:11 Date Recorded Body height Body mass index (BMI) Body weight Systolic blood pressure Diastolic blood pressure Provider Name and Address Organization Details Last Updated DateTime 12/26/2024 175.26 cm 37.8 kg/m2 907652.6 5 g 133 mm[Hg] 78 mm[Hg] RAFAEL Avelar [facility] 5 10:56:04 Social History Question Answer Notes LastModified by Organizat ion Details LastModified Time Tobacco Smoking Status [facility]23 15:43:28 Do You Have An Advance Directive? No Information not available 02/25/2021 What Is Your Level Of Alcohol Consumption? Occasional Information not available 02/25/2021 Are You Blind Or Do You Have Difficulty Seeing? No Information not available 02/25/2021 What Is Your Level Of Caffeine Consumption? Moderate Information not available 02/25/2021 In The 14 Days Before Symptom Onset, Have You Had Close Contact With A Laboratory-confir med COVID-19 While That Case Was Ill? No Information not available 02/25/2021 In The 14 Days Before Symptom Onset, Have You Had Close Contact With A Person Who Is Under Investigation For COVID-19 While That Person Was Ill? No Information not available 02/25/2021 Have You Been To An Area Known To Be High Risk For COVID-19? No Information not available 02/25/2021 Are You Deaf Or Do You Have Serious Difficulty Hearing? No Information not available 02/25/2021 What Type Of Diet Are You Following? REGULAR Information not available 08/13/2023 What Is The Highest Grade Or Level Of School You Have Completed Or The Highest Degree You Have Received? 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 1-5yearssincel kailee Quit 4 Years Ago Information not available 08/13/2023 Are There Any Guns Present In Your Home? Yes Information not available 02/25/2021 Do You Use Protection During Sex? No Information not available 02/25/2021 Do You Use Your Seat Belt Or Car Seat Routinely? Yes Information not available 02/25/2021 Do You Have Smoke And Carbon Monoxide Detectors In Your Home? Yes Information not available 02/25/2021 How Much Tobacco Do You Smoke? No Information not available 08/13/2023 Do You Feel Stressed (tense, Restless, Nervous, Or Anxious, Or Unable To Sleep At Night)? [id number] Information not available 08/13/2023 Do You Use Any Illicit Or Recreational Drugs? No Information not available 02/25/2021 Do You Use Sunscreen Routinely? No Information not available 08/13/2023 Have You Used IV Drugs? No Information not available 02/25/2021 Sex: Unknown Functional Status Question Answer Note LastModified by Organizat ion Details LastModified Time Are you able to walk? YESWOREST Information not available 02/25/2021 What is your exercise level? Occasional Information not available 02/25/2021 Mental Status None recorded. Family History Relationship Description Onset Age of this Age Resolved Age Notes LastModified by Organization Details LastModified Time Sister Polycystic ovary syndrome [email or web address] Not available 2019 09:35:25 Medical History No medical history recorded. Gynecological History Statement/Question Response N STIs/STDs N Was last menstrual period normal N HPV Vaccine Y Duration of Flow (days) 0 Current Control Method IUD Frequency of Cycle (Q days) 0 Sexually Active? Y Age of first menstrual cycle 9 Date of Last Pap Smear 02/26/2022 Sexual Problems? N LMP Unknown N Obstetrics History GPAL:G 0 P 0 0 0 0 Past Encounters Encounter ID Performer Location Encounter Start Date Encounter Closed Date Diagnosis/Indication Diagnosis SNOMED-CT Code Diagnosis ICD10 Code Diagnosis Note [id number] Mikey Laughlin MD [facility] [address] [address] 03/11/2020 09:27:45 03/11/2020 13:09:17 Gynecologic examination 76933151 Z01.419 This patient is here for her annual exam. A thorough history was taken. A physical exam was performed. Age appropriat e routine health screening was ordered, performed, and discussed. Recommende d testing was ordered. She was asked to follow up in one year. She will be informed of any test results. Hidradenit is suppurativa of vulva 456862096 L73.2 [id number] Mikey Laughlin MD [facility] [address],[facility] [place] [address] 04/02/2022 09:19:47 04/02/2022 17:15:31 Contraception care management 456797694 Z30.9 IUD was placed without complicati ons. She tolerated it well. Kyleena was placed. [id number] Mikey Laughlin MD [facility] [address] [address] 02/10/2021 09:26:33 02/10/2021 10:29:48 Pain in pelvis 12585506 R10.2 Cyst of ovary 08277891 N 83.209 Abnormal u terine bleeding 4025626892 9100 N93.9 this patient is a 30-year-ol d female presents for ER follow-up. She had severe pelvic pain and was taken to the emergency department . She was found to have an ovarian cyst and hemoperito neum. It is likely she had a ruptured /hemorrhag ic cyst. Her pain is improved. Patient has a progestero ne containing IUD. we discussed ovarian cyst. We discussed inhibition of cyst formation. We discussed the etiology, natural history, purpose of follicular cysts. Talked treatment and follow-up. We agreed to obtain pelvic ultrasound to further analyze or cyst in the uterus. Patient reports facial hair and acne. She has concerned about polycystic ovarian syndrome. We agreed to obtain laboratory evaluation . We talked about polycystic ovarian syndrome in detail. Talked about the etiology, natural history, problems and risk associated with polycystic ovarian syndrome. We spent considerab le time talking about these 2 complex topics. She will have ultrasound evaluation , pelvic ultrasound and will follow-up. 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 She had a pelvic ultrasound recently that showed resolution of the ovarian cyst. This cyst was discovered on CT scan in the emergency department . Her pain is resolving. She is in no acute pain. We agreed to observe her cyst problem. We patient has elevated testostero ne at a markedly elevated DHEA-S. Her DHEA-S is uniquely elevated and I feel like she should be evaluated about an endocrinol ogist. We discussed this. We also discussed the use of metformin, oral contracept joe pills, for the treatment of elevated androgens. 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 Patient would like to evaluate and treat the androgen concern. We agreed to a endocrinol ogy consult. Cyst of ovary 83193560 N 83.209 [id number] Mikey Laughlin MD [facility] [address],[facility] [place] [address] 02/26/2022 09:26:41 02/26/2022 10:33:39 Gynecologic examination 71564579 Z01.419 This patient is here for her annual exam. A thorough history was taken. A physical exam was performed. Age appropriat e routine health screening was ordered, performed, and discussed. Recommende d testing was ordered. She was asked to follow up in one year. She will be informed of any test results. Spotting with Angella - considerin g early exchange Polycystic ovary syndrome 573502020 E28.2 elevated dheas - adrenals were normal on 02/01 CT - to consider starting metformin after repeat labs. Mat start Metformin over the phone [id number] Mikey Laughlin MD [facility] [address],[place] [address] 04/30/2022 10:19:01 04/30/2022 11:10:17 Contraception care management 125779196 Z30.9 This patient is a 31-year-ol d female presents for IUD check. The vulva vagina and cervix were examined. The IUD string is position normally. The vulva vagina and cervix appear normal. She has no complaints about the IUD. [id number] Mikey Laughlin MD [facility] [address],[place] [address] 05/10/2022 09:32:34 05/11/2022 15:16:05 [id number] Mikey Laughlin MD [facility] [address],[place] [address] 08/13/2023 15:02:56 08/13/2023 16:45:17 Gynecologic examination 63187473 Z01.419 Z11.51 This patient is here for her annual exam. A thorough history was taken. A physical exam was performed. Age appropriat e routine health screening was ordered, performed, and discussed. Recommende d testing was ordered. She was asked to follow up in one year. She will be informed of any test results. Spotting with Angella - considerin g early exchange Subcutaneous nodule 9532 5000 R22.9 to image the subcutaneo us nodule over the inferior aspect of the sternum [id number] Mikey Laughlin MD [facility] [address],[place] [address] 12/26/2024 10:45:21 12/26/2024 11:33:05 Hidradenitis suppurativa 39792846 L73.2 Gynecologi c examination 22149202 Z01.419 Z11.51 This patient is here for her annual exam. A thorough history was taken. A physical exam was performed. Age appropriat e routine health screening was ordered, performed, and discussed. Recommende d testing was ordered. She was asked to follow up in one year. She will be informed of any test results. Spotting with Angella priest early exchange Patient has PCOS and hidradenit is suppurativ a. We talked about treatments , etiology, natural history, complicati ons. We agreed to work on weight management and lowering her testostero ne for the treatment of her PCOS and hidradenit is. Polycystic ovary syndrome 817739998 E28.2 elevated dheas - adrenals were normal on 02/01 CT - to consider starting metformin after repeat labs. Mat start Metformin over the phone Health Concerns Section Related Observation LastModified by Organization Detai ls LastModified Time None Recorded Concern Status LastModified by Organization Details LastModified Time None Recorded Advance Directives Directive N: Payers Encounter Date Sequence Insurance Name Policy Number Policy Wooten Covered Member ID Wooten Member ID Guarantor Name 04/02/2022 1 [facility] [id number] Jennilee R Meffert [id number] Jennilee R Meffert 04/30/2022 1 [facility] [id number] Jennilee R Meffert [id number] Jennilee R Meffert 05/10/2022 1 [facility] [id number] Jennilee R Meffert [id number] Jennilee R Meffert 08/13/2023 1 [facility] [id number] Jennilee R Meffert [id number] Jennilee R Meffert 12/26/2024 1 [facility] Jennilee R Meffert [id number] Jennilee R Meffert Notes Date Note Type Note Provider Name and Address Organization Details Recorded Time 04/02/2022 text/html Patient presents for IUD insertion. Mikey Laughlin MD [address] [place], [address], [facility] 04/03/2022 17:56:10 04/30/2022 text/html This patient is a 31-year-old female presents for IUD check. The vulva vagina and cervix were examined. The IUD string is position normally. The vulva vagina and cervix appear normal. She has no complaints about the IUD. Mikey Laughlin MD [address], [place], [address], [facility] 04/30/2022 10:46:49 08/13/2023 text/html Annual GYNReport ed bypatient.History: no gynecologic complaints Menstrual cycle:amenorrhea Urinary symptoms:No hematuria Vulva:No genital lesion Vagina:Normal vaginal discharge Breast:No breast pain;Breast lump Current Contraception:Sati sfied with current contraception; Intrauterine device (iud) Sexual complaints:No sexual complaints; No pain during intercourse Psychological symptoms:Depressio n;Anxiety; treated Preventive measures:Encourage self breast examination; Encourage regular exercise Mikey Laughlin MD [address], [place], [address], [facility] 08/13/2023 16:44:31 12/26/2024 text/html Annual GYNReport ed bypatient.History: no gynecologic complaints Menstrual cycle:Normal menses Urinary symptoms:No hematuria; No incontinence Vulva:No genital lesion Vagina:Normal vaginal discharge Breast:No breast pain; No breast lump Current Contraception:Sati sfied with current contraception; Intrauterine device (iud) Sexual complaints:No sexual complaints; No pain during intercourse Menopausal Symptoms:No menopausal symptoms; Normal vaginal lubrication Psychological symptoms:Depressio n;Anxiety; Txed Preventive measures:Encourage self breast examination; Encourage regular exercise Mikey Laughlin MD [address], [place], [address], [facility] 12/26/2024 11:32:49 OBGyn Episode No OBEpisode recorded.
== END 2025-01-01 09:19 | disposition home or self-care (01) ==
LOC: ANHAUDIO 09:18
PROVIDERS: PCP Family Medicine; Visit Provider Otolaryngology
DX: H90.11 Conductive hearing loss, unilateral, right ear, with unrestricted hearing on the contralateral side (principal); J31.0 Chronic rhinitis
CPT/HCPCS: 92557; 92567